=== PATIENT | male | born 1970 | race African-American/Black ===

== ENCOUNTER 2022-09-30 09:44 | Emergency (ER) | payer OTHER ==
[~2022-09-30] VITALS: Ht 167.6 cm; Wt 67.0 kg
[2022-09-30 09:51] VITALS: BP 128/75
[2022-09-30] MEDS ORDERED: FLUORESCEIN SODIUM 1MG/STRIP RIGHTEYE STA (10:35)
[2022-09-30] MEDS ORDERED: TETRACAINE 0.5% OPHTH DROPS 4ML RIGHTEYE STA (10:35)
== END 2022-09-30 11:32 | disposition home or self-care (01) ==
LOC: ER 09:44
DX: H57.89 Other specified disorders of eye and adnexa (principal); Z98.890 Other specified postprocedural states
CPT/HCPCS: 99283